=== PATIENT | male | born 1945 | race Caucasian/White ===

== ENCOUNTER → 2023-03-21 | Outpatient (CLI) | payer OTHER | END | disposition home or self-care (01) | LOC: RAH 07:51 | PROVIDERS: ATTEND Family Medicine | DX: R10.12 Left upper quadrant pain (principal) | CPT/HCPCS: 74150 ==

== ENCOUNTER → 2024-02-05 | Outpatient (CLI) | payer OTHER ==
[2024-02-05 12:27] LABS: CHOLESTEROL 186 mg/dL (<200); HDL CHOLESTEROL 56 mg/dL (29-71); LDL DIRECT 110 mg/dL (0-99); TRIGLYCERIDES 215 mg/dL (30-200)
== END | disposition home or self-care (01) ==
LOC: LAB 09:50
PROVIDERS: ATTEND Internal Medicine
DX: E78.5 Hyperlipidemia, unspecified (principal)
CPT/HCPCS: 36415; 80061

== ENCOUNTER → 2024-11-07 | Outpatient (CLI) | payer OTHER ==
[2024-11-07 15:18] LABS: CHOLESTEROL 114 mg/dL (<200); HDL CHOLESTEROL 62 mg/dL (29-71); LDL DIRECT 46 mg/dL (0-99); TRIGLYCERIDES 79 mg/dL (30-200)
== END | disposition home or self-care (01) ==
LOC: LAB 11:45
PROVIDERS: ATTEND Internal Medicine
DX: E78.5 Hyperlipidemia, unspecified (principal)
CPT/HCPCS: 36415; 80061